=== PATIENT | female | born 1990 | race American Indian/Alaskan Native ===

== ENCOUNTER 2017-03-25 08:14 | Outpatient (CLI) | payer MEDICAID ==
[2017-03-25] MEDS ORDERED: XYLOCAINE TOPICAL 4% TP ONE ×2 (09:00→15:17)
== END 2017-03-25 08:15 | disposition home or self-care (01) ==
LOC: WOUND 08:14
PROVIDERS: ATTEND Surgery
DX: E11.622 Type 2 diabetes mellitus with other skin ulcer (principal); L97.812 Non-pressure chronic ulcer of other part of right lower leg with fat layer exposed; I87.2 Venous insufficiency (chronic) (peripheral)
CPT/HCPCS: 11042; G0463

== ENCOUNTER 2017-04-02 13:55 | Outpatient (CLI) | payer MEDICAID ==
[2017-04-02] MEDS ORDERED: XYLOCAINE TOPICAL 2% ONE (14:22)
[2017-04-02] MEDS ORDERED: XYLOCAINE TOPICAL 2% TP ONE (14:24)
== END 2017-04-02 13:56 | disposition home or self-care (01) ==
LOC: WOUND 13:55
PROVIDERS: ATTEND Internal Medicine
DX: I87.311 Chronic venous hypertension (idiopathic) with ulcer of right lower extremity (principal); E11.622 Type 2 diabetes mellitus with other skin ulcer; L97.812 Non-pressure chronic ulcer of other part of right lower leg with fat layer exposed; F17.210 Nicotine dependence, cigarettes, uncomplicated

== ENCOUNTER 2017-04-09 13:43 | Outpatient (CLI) | payer MEDICAID ==
[2017-04-09] MEDS ORDERED: XYLOCAINE TOPICAL 4% TP ONE (13:46)
== END 2017-04-09 13:44 | disposition home or self-care (01) ==
LOC: WOUND 13:43
PROVIDERS: ATTEND Surgery
DX: I87.2 Venous insufficiency (chronic) (peripheral) (principal); E11.622 Type 2 diabetes mellitus with other skin ulcer; L97.812 Non-pressure chronic ulcer of other part of right lower leg with fat layer exposed; F17.210 Nicotine dependence, cigarettes, uncomplicated

== ENCOUNTER 2017-04-16 14:01 | Outpatient (CLI) | payer MEDICAID ==
[2017-04-16] MEDS ORDERED: XYLOCAINE TOPICAL 4% TP ONE ×2 (14:05→15:00)
[2017-04-16] MEDS ORDERED: SILVER NITRATE TP ONE (14:25)
== END 2017-04-16 14:02 | disposition home or self-care (01) ==
LOC: WOUND 14:01
PROVIDERS: ATTEND Surgery
DX: I87.2 Venous insufficiency (chronic) (peripheral) (principal); E11.622 Type 2 diabetes mellitus with other skin ulcer; L97.812 Non-pressure chronic ulcer of other part of right lower leg with fat layer exposed; F17.210 Nicotine dependence, cigarettes, uncomplicated

== ENCOUNTER 2017-04-23 13:23 | Outpatient (CLI) | payer MEDICAID ==
[2017-04-23] MEDS ORDERED: XYLOCAINE TOPICAL 4% TP ONE ×2 (13:45→14:44)
[2017-04-23] MEDS ORDERED: SILVER NITRATE TP ONE ×2 (14:14→14:16)
== END 2017-04-23 13:24 | disposition home or self-care (01) ==
LOC: WOUND 13:23
PROVIDERS: ATTEND Surgery
DX: E11.622 Type 2 diabetes mellitus with other skin ulcer (principal); L97.812 Non-pressure chronic ulcer of other part of right lower leg with fat layer exposed; F17.210 Nicotine dependence, cigarettes, uncomplicated

== ENCOUNTER 2017-04-30 13:16 | Outpatient (CLI) | payer MEDICAID ==
[2017-04-30] MEDS ORDERED: XYLOCAINE TOPICAL 4% TP ONE ×2 (13:38→13:46)
== END 2017-04-30 13:17 | disposition home or self-care (01) ==
LOC: WOUND 13:16
PROVIDERS: ATTEND Surgery
DX: E11.622 Type 2 diabetes mellitus with other skin ulcer (principal); L97.812 Non-pressure chronic ulcer of other part of right lower leg with fat layer exposed; F17.210 Nicotine dependence, cigarettes, uncomplicated

== ENCOUNTER 2017-05-14 14:27 | Outpatient (CLI) | payer MEDICAID ==
[2017-05-14] MEDS ORDERED: XYLOCAINE TOPICAL 4% TP ONE ×2 (14:44→14:45)
== END 2017-05-14 14:28 | disposition home or self-care (01) ==
LOC: WOUND 14:27
PROVIDERS: ATTEND Surgery
DX: E11.622 Type 2 diabetes mellitus with other skin ulcer (principal); L97.812 Non-pressure chronic ulcer of other part of right lower leg with fat layer exposed; F17.210 Nicotine dependence, cigarettes, uncomplicated

== ENCOUNTER 2017-05-21 13:43 | Outpatient (CLI) | payer MEDICAID ==
[2017-05-21] MEDS ORDERED: XYLOCAINE TOPICAL 4% TP ONE (13:45)
== END 2017-05-21 13:44 | disposition home or self-care (01) ==
LOC: WOUND 13:43
PROVIDERS: ATTEND Surgery
DX: E11.622 Type 2 diabetes mellitus with other skin ulcer (principal); L97.812 Non-pressure chronic ulcer of other part of right lower leg with fat layer exposed; F17.210 Nicotine dependence, cigarettes, uncomplicated
CPT/HCPCS: 99214; G0463

== ENCOUNTER 2017-06-04 14:06 | Outpatient (CLI) | payer MEDICAID ==
[~2017-06-04 14:06] MED LIST: XYLOCAINE TOPICAL 4% TP ONE
[2017-06-04] MEDS ORDERED: XYLOCAINE TOPICAL 4% TP ONE ×2 (14:24→16:22)
== END 2017-06-04 14:07 | disposition home or self-care (01) ==
LOC: WOUND 14:06
PROVIDERS: ATTEND Surgery
DX: E11.622 Type 2 diabetes mellitus with other skin ulcer (principal); L97.812 Non-pressure chronic ulcer of other part of right lower leg with fat layer exposed; F17.210 Nicotine dependence, cigarettes, uncomplicated

== ENCOUNTER 2017-06-11 13:53 | Outpatient (CLI) | payer MEDICAID ==
[2017-06-11] MEDS ORDERED: XYLOCAINE TOPICAL 2% TP ONE ×2 (14:16→15:00)
[2017-06-11] MEDS ORDERED: SILVER NITRATE TP ONE ×2 (14:30→14:42)
== END 2017-06-11 13:54 | disposition home or self-care (01) ==
LOC: WOUND 13:53
PROVIDERS: ATTEND Surgery
DX: E11.622 Type 2 diabetes mellitus with other skin ulcer (principal); L97.812 Non-pressure chronic ulcer of other part of right lower leg with fat layer exposed; F17.210 Nicotine dependence, cigarettes, uncomplicated

== ENCOUNTER 2017-07-09 13:01 | Outpatient (CLI) | payer MEDICAID ==
[2017-07-09] MEDS ORDERED: XYLOCAINE TOPICAL 4% TP ONE ×2 (13:12→13:21)
== END 2017-07-09 13:02 | disposition home or self-care (01) ==
LOC: WOUND 13:01
PROVIDERS: ATTEND Surgery
DX: E11.622 Type 2 diabetes mellitus with other skin ulcer (principal); L97.812 Non-pressure chronic ulcer of other part of right lower leg with fat layer exposed; F17.210 Nicotine dependence, cigarettes, uncomplicated

== ENCOUNTER 2017-07-30 09:55 | Outpatient (CLI) | payer MEDICAID ==
[2017-07-30] MEDS ORDERED: XYLOCAINE TOPICAL 4% TP ONE ×2 (10:21→10:29)
== END 2017-07-30 09:56 | disposition home or self-care (01) ==
LOC: WOUND 09:55
PROVIDERS: ATTEND Surgery
DX: E11.622 Type 2 diabetes mellitus with other skin ulcer (principal); L97.812 Non-pressure chronic ulcer of other part of right lower leg with fat layer exposed; F17.210 Nicotine dependence, cigarettes, uncomplicated

== ENCOUNTER 2017-08-13 08:12 | Outpatient (CLI) | payer MEDICAID ==
[2017-08-13] MEDS ORDERED: XYLOCAINE TOPICAL 4% TP ONE ×2 (08:22→08:31)
[2017-08-13] MEDS ORDERED: NACL 0.9% 500 ML IR ONE (08:58)
== END 2017-08-13 08:13 | disposition home or self-care (01) ==
LOC: WOUND 08:12
PROVIDERS: ATTEND Surgery
DX: E11.622 Type 2 diabetes mellitus with other skin ulcer (principal); L97.812 Non-pressure chronic ulcer of other part of right lower leg with fat layer exposed; F17.210 Nicotine dependence, cigarettes, uncomplicated

== ENCOUNTER 2017-08-27 07:59 | Outpatient (CLI) | payer MEDICAID ==
[2017-08-27] MEDS ORDERED: XYLOCAINE TOPICAL 4% TP ONE ×2 (08:16→08:18)
== END 2017-08-27 08:00 | disposition home or self-care (01) ==
LOC: WOUND 07:59
PROVIDERS: ATTEND Surgery
DX: E11.622 Type 2 diabetes mellitus with other skin ulcer (principal); L97.811 Non-pressure chronic ulcer of other part of right lower leg limited to breakdown of skin; Z79.4 Long term (current) use of insulin; F17.210 Nicotine dependence, cigarettes, uncomplicated

== ENCOUNTER 2017-09-03 08:06 | Outpatient (CLI) | payer MEDICAID ==
[2017-09-03] MEDS ORDERED: XYLOCAINE TOPICAL 4% TP ONE ×2 (08:29→08:35)
[2017-09-03] MEDS ORDERED: DAKIN'S FULL STRENGTH ONE (09:02)
[2017-09-03] MEDS ORDERED: DAKIN'S HALF STRENGTH TP PRN (15:10)
== END 2017-09-03 08:07 | disposition home or self-care (01) ==
LOC: WOUND 08:06
PROVIDERS: ATTEND Surgery
DX: E11.622 Type 2 diabetes mellitus with other skin ulcer (principal); L97.812 Non-pressure chronic ulcer of other part of right lower leg with fat layer exposed; F17.200 Nicotine dependence, unspecified, uncomplicated; Z72.89 Other problems related to lifestyle
CPT/HCPCS: 11042; 11045; A6260

== ENCOUNTER 2017-09-10 08:15 | Outpatient (CLI) | payer MEDICAID ==
[2017-09-10] MEDS ORDERED: XYLOCAINE TOPICAL 4% TP ONE ×2 (08:33→09:00)
[2017-09-10] MEDS ORDERED: SILVER NITRATE TP ONE ×2 (08:52→11:14)
[2017-09-10] MEDS ORDERED: DAKIN'S FULL STRENGTH ONE (09:00)
[2017-09-10] MEDS ORDERED: DAKIN'S HALF STRENGTH TP ONE (15:06)
[2017-09-10] MEDS ORDERED: DAKIN'S FULL STRENGTH TP ONE (15:26)
== END 2017-09-10 08:16 | disposition home or self-care (01) ==
LOC: WOUND 08:15
PROVIDERS: ATTEND Surgery
DX: E11.622 Type 2 diabetes mellitus with other skin ulcer (principal); L97.812 Non-pressure chronic ulcer of other part of right lower leg with fat layer exposed; F17.210 Nicotine dependence, cigarettes, uncomplicated; Z72.89 Other problems related to lifestyle

== ENCOUNTER 2017-11-05 08:04 | Outpatient (CLI) | payer MEDICAID ==
[2017-11-05] MEDS ORDERED: XYLOCAINE TOPICAL 4% TP ONE (09:00)
== END 2017-11-05 08:05 | disposition home or self-care (01) ==
LOC: WOUND 08:04
PROVIDERS: ATTEND Surgery
DX: E11.622 Type 2 diabetes mellitus with other skin ulcer (principal); L97.812 Non-pressure chronic ulcer of other part of right lower leg with fat layer exposed; F17.210 Nicotine dependence, cigarettes, uncomplicated

== ENCOUNTER 2018-06-10 13:21 | Outpatient (CLI) | payer MEDICAID | END 2018-06-10 13:22 | disposition home or self-care (01) | LOC: CARD 13:21 | PROVIDERS: ATTEND Obstetrics & Gynecology | DX: O24.119 Pre-existing type 2 diabetes mellitus, in pregnancy, unspecified trimester (principal); O99.330 Smoking (tobacco) complicating pregnancy, unspecified trimester; Z3A.00 Weeks of gestation of pregnancy not specified | CPT/HCPCS: 93005; 93010 ==